=== PATIENT | male | born 1970 | race Caucasian/White ===

== ENCOUNTER 2019-03-11 05:17 | Inpatient (IN) | payer OTHER ==
[~2019-03-11] VITALS: Ht 177.8 cm; Wt 141.5 kg
[~2019-03-11 05:17] MED LIST: DICL75TA5 PO; HYDR-4354 PO
[2019-03-11 06:00] VITALS: BP 150/97
--- NOTE | 2019-03-11 06:00 | NUR ---
admission note. patient admitted to [facility] from home as direct admission to have surgery perfored by dr. whitaker on left knee. admission assessment performed. iv initiated to right forearm. patient tolerated the procedure well. consents for surgery signed. patient npo since 10 pm last night. patient questions ancd concerns addressed. bed down locked sr x2 call nunez in reach. patient verbalized understanding to call for assistance as needed.
[2019-03-11 07:01] LABS: BASOPHILS % (AUTO) 0.4 % (0.0-2.0); EOSINOPHILS % (AUTO) 5.3 % (0.0-6.0); HEMATOCRIT 41 % (39-51); HEMOGLOBIN 13.7 g/dL (13.5-17.5); LYMPHOCYTES # (AUTO) 1.9 /CMM (0.8-4.8); LYMPHOCYTES % (AUTO) 26.7 % (20.0-44.0); MEAN CORPUSCULAR HGB CONC 34 g/dl (31.0-36.0); MEAN CORPUSCULAR VOLUME 81 fL (80-96); MONOCYTES # (AUTO) 0.5 /CMM (0.1-1.30); MONOCYTES % (AUTO) 7.4 % (2.0-12.0); NEUTROPHILS # (AUTO) 4.2 /CMM (1.8-8.9); NEUTROPHILS % (AUTO) 60.2 % (43.0-81.0); PLATELET COUNT (AUTO) 192 /CMM (150-450); RED BLOOD CELL COUNT(AUTO) 5.02 MIL/uL (4.5-6.0)
[2019-03-11] MEDS ORDERED: METF-440 PO (07:08)
[2019-03-11] MEDS ORDERED: HYDR-4354 PO (07:08)
[2019-03-11] MEDS ORDERED: CELE100C PO (07:08)
[2019-03-11] MEDS ORDERED: OMEP20CA11 PO (07:08)
[2019-03-11 07:16] LABS: CALCIUM, SERUM 8.7 mg/dL (8.5-10.1); CREATININE 0.8 mg/dL (0.6-1.3); POTASSIUM 4.3 mmol/L (3.5-5.1)
[2019-03-11 07:19] LABS: MAGNESIUM 1.8 mg/dL (1.8-2.4)
--- NOTE | 2019-03-11 07:30 | NUR ---
RN OPENING NOTE PT WAS RECEIVED IN BED AT LOWEST AND LOCKED POSITION WITH SIDE RAILS UP X2, A/O X4 BREATHING EVEN AND UNLABORED ON RA, NO CURRENT COMPLAINTS OF ANY DISTRESS OR PAIN NOTED, IV IS PATENT AND INTACT, PLAN FOR SURGERY TODAY OF LEFT KNEE, SAFETY PRECAUTIONS IN PLACE, CALL LIGHT WITHIN REACH, WILL MONITOR PT ACCORDINGLY
--- NOTE | 2019-03-11 08:03 | NUR ---
RN NOTE PT WAS TAKEN DOWN TO THE OR AT THIS TIME
[2019-03-11 08:11] VITALS: BP 137/95
[2019-03-11] MEDS ORDERED: BACITRACIN 50000 UNITS/VIAL ONE (08:30)
[2019-03-11] MEDS ORDERED: HYDROMORPHONE INJ 2 MG/ML DISP.SYRIN ONE (08:37)
[2019-03-11] MEDS ORDERED: MIDAZOLAM HCL 2 MG/2ML VIAL ONE (08:37)
[2019-03-11] MEDS ORDERED: SUCCINYLCHOLINE CHLORIDE 20 MG/ML VIAL ONE (08:38)
[2019-03-11] MEDS ORDERED: TRANEXAMIC ACID 3,000 MG in SODIUM CHLORIDE IRRIG SOLUTION 70 ML IR ONE (09:00)
[2019-03-11] MEDS ORDERED: BUPIVACAINE 0.5 % PF 150 MG/30 ML VIAL ONE (10:13)
[2019-03-11] MEDS ORDERED: HYDROMORPHONE 1 MG/1 ML DISP.SYRIN ONE ×2 (10:37→10:55)
[2019-03-11] MEDS ORDERED: DULCOLAX 10 MG/SUPP.RECT RC PRN (11:00)
[2019-03-11] MEDS ORDERED: HYDROMORPHONE INJ 2 MG/ML DISP.SYRIN IV PRN (11:00)
[2019-03-11] MEDS ORDERED: MAG HYDROX/AL HYDROX/SIMETH 30 ML UDC PO PRN ×2 (11:00→12:30)
[2019-03-11] MEDS ORDERED: MAGNESIUM HYDROXIDE 30 ML UDC PO PRN ×2 (11:00→12:30)
[2019-03-11] MEDS ORDERED: diphenhydrAMINE HCL 25 MG CAPSULE PO PRN ×2 (11:00→12:30)
[2019-03-11] MEDS ORDERED: NALOXONE HCL 0.4 MG/ML AMPUL IV PRN ×2 (11:00→12:30)
[2019-03-11] MEDS ORDERED: MENTHOL/CETYLPYRD (CEPACOL) 1 LOZ LOZENGE MM PRN ×2 (11:00→12:30)
[2019-03-11] MEDS ORDERED: HYDROCODONE/APAP 10/325MG 1 EA TABLET PO PRN (11:00)
[2019-03-11] MEDS ORDERED: CLONIDINE HCL 0.1 MG TABLET PO PRN ×2 (11:00→12:30)
[2019-03-11] MEDS ORDERED: HYDROMORPHONE INJ 2 MG/ML DISP.SYRIN SQ PRN (11:00)
[2019-03-11] MEDS ORDERED: ONDANSETRON HCL/PF 4 MG/2 ML VIAL IVP PRN ×3 (11:00→12:30)
[2019-03-11] MEDS ORDERED: SENOKOT 8.6 MG TABLET PO PRN ×2 (11:00→11:18)
[2019-03-11] MEDS ORDERED: COLACE 250 MG CAPSULE PO PRN (11:00)
[2019-03-11] MEDS ORDERED: BISACODYL SUPP (10 MG) 10 MG/SUPP.RECT SUPP.RECT RC PRN ×2 (11:00→11:30)
[2019-03-11] MEDS ORDERED: TYLENOL 650 MG TABLET PO PRN (11:00)
[2019-03-11 11:30] VITALS: BP 148/96
[2019-03-11] MEDS ORDERED: HYDROCODONE/APAP 5/325MG 1 EACH TABLET PO PRN ×2 (11:30)
[2019-03-11] MEDS: IV D5/0.45 NACL 1,000 ML IV PRN ×2 (11:43→20:34)
[2019-03-11 11:45] VITALS: BP 148/99
[2019-03-11] MEDS ORDERED: CYCLOBENZAPRINE 10 MG TABLET PO PRN (12:30)
[2019-03-11] MEDS ORDERED: KEY,NONCONTROL,TO KEEP IN PYXI 1 EA MC ONE (13:43)
[2019-03-11] MEDS: HYDROMORPHONE MDV 30 MG in IV NS 0.9% 15 ML, PCA TOTAL VOLUME 1 BAG IV PRN ×3 (13:48)
[2019-03-11] MEDS: ANCEF 1 G in IV D5W 50 ML IV SCH ×2 (15:13→23:53)
[2019-03-11] MEDS: DOCUSATE SODIUM 100 MG CAPSULE PO SCH (16:18)
[2019-03-11 16:27] VITALS: BP 132/94
[2019-03-11] MEDS ORDERED: DOCUSATE SODIUM 100 MG CAPSULE PO SCH (17:00)
[2019-03-11] MEDS: HYDROMORPHONE INJ 2 MG/ML DISP.SYRIN SQ PRN (17:50)
--- NOTE | 2019-03-11 19:20 | NUR ---
RN OPEN NOTES RECEIVED PATIENT AWAKE IN BED. A/OX4. NO SIGNS OF DISTRESS OR DISCOMFORT. BREATHING EVEN AND UNLABORED. IV ACCESS IN RFA WITH D5 1/2NS INFUSING, PATENT AND INTACT, NO SIGNS OF REDNESS OR INFILTRATION. STATES PAIN 5/10 IN L KNEE AND TOLERABLE AT THIS TIME. ON SCHOOL ADMISSIONS REPRESENTATIVE PUMP, TOLERATING WELL. BED IN LOW LOCKED POSITION WITH SIDE RAILS X2. CALL LIGHT WITHIN REACH. WILL CONTINUE TO MONITOR.
--- NOTE | 2019-03-11 19:32 | NUR ---
RN CLOSING NOTE PT IN BED AT LOWEST AND LOCKED POSITION WITH SIDE RAILS UP X2, A/O X4 BREATHING EVEN AND UNLABORED ON RA, NO CURRENT COMPLAINTS OF ANY DISTRESS OR PAIN NOTED, IV IS PATENT AND INTACT, SAFETY PRECAUTIONS IN PLACE, CALL LIGHT WITHIN REACH, WILL ENDORSE TO WEB APPLICATIONS ARCHITECT RN FOR TAWNYA.
[2019-03-11 20:00] VITALS: BP 115/85
[2019-03-11] MEDS: FAMOTIDINE (20 MG) 20 MG TABLET PO SCH (20:27)
[2019-03-11] MEDS ORDERED: FAMOTIDINE (20 MG) 20 MG TABLET PO SCH (21:00)
[2019-03-11] MEDS ORDERED: ZOLPIDEM TARTRATE 5 MG TABLET PO PRN (22:00)
[2019-03-12] MEDS: HYDROMORPHONE INJ 2 MG/ML DISP.SYRIN SQ PRN ×4 (04:22→16:06)
--- NOTE | 2019-03-12 04:22 | NUR ---
RN NOTES ADMINISTERED DILAUDID 1MG ORDERED FOR 9/10 PAIN IN L KNEE, AT PATIENT REQUEST. VSS. WILL CONTINUE TO MONITOR.
[2019-03-12] MEDS: HYDROCODONE/APAP 10/325MG 1 EA TABLET PO PRN ×4 (06:05→21:06)
[2019-03-12] MEDS: IV D5/0.45 NACL 1,000 ML IV PRN ×2 (06:05→21:13)
--- NOTE | 2019-03-12 06:05 | NUR ---
RN NOTES ADMINISTERED NORCO 10/325 ORDERED FOR 7/10 PAIN IN L KNEE, AT PATIENT REQUEST. VSS. WILL CONTINUE TO MONITOR.
--- NOTE | 2019-03-12 06:43 | NUR ---
RN CLOSING NOTES PATIENT RESTING IN BED. A/OX4. NO SIGNS OF DISTRESS OR DISCOMFORT. BREATHING EVEN AND UNLABORED. IV ACCESS IN RFA WITH D5 1/2NS INFUSING, PATENT AND INTACT, NO SIGNS OF REDNESS OR INFILTRATION. STATES PAIN IN L KNEE IS TOLERABLE AT THIS TIME. ON SECURITY SERVICES SPECIALIST PUMP, TOLERATING WELL. ALL NEEDS MET. NO SIGNIFICANT CHANGES THROUGH THE NIGHT. BED IN LOW LOCKED POSITION WITH SIDE RAILS X2. CALL LIGHT WITHIN REACH. WILL ENDORSE TO AM SHIFT FOR TAWNYA.
[2019-03-12 08:00] VITALS: BP 134/91
--- NOTE | 2019-03-12 08:00 | NUR ---
RN OPENING NOTES RECEIVED PT. PT STABLE AND RESTING IN BED. NO S/S OF RESP DISTRESS/SOB, PTS BREATHING APPEARS UNLABORED, UPON AUSCULTATION BREATH SOUNDS CLEAR. NO C/O PAIN AT THIS TIME. TYPE INSPECTOR PUMP BEDSIDE, CONTROLLER WITHIN REACH. PT TO HAVE PT/OT AND RECEIVE CPM TODAY, WILL F/U WITH THERAPY. SAFETY MEASURES IN PLACE, CALL LIGHT WITHIN REACH. WILL CONT TO MONITOR.
[2019-03-12] MEDS: FAMOTIDINE (20 MG) 20 MG TABLET PO SCH ×2 (08:41→21:06)
[2019-03-12] MEDS: ASPIRIN 325 MG TABLET PO SCH ×2 (08:41→16:03)
[2019-03-12] MEDS: SENNOSIDES 8.6 MG TABLET PO SCH (08:41)
[2019-03-12] MEDS: TAMSULOSIN 0.4 MG CAP.SR.24H PO SCH (08:41)
[2019-03-12] MEDS: DOCUSATE SODIUM 100 MG CAPSULE PO SCH ×2 (08:41→16:04)
[2019-03-12] MEDS ORDERED: SENNOSIDES 8.6 MG TABLET PO SCH (09:00)
[2019-03-12] MEDS ORDERED: DEXTROSE 50%-WATER 50 ML DISP.SYRIN IV PRN (09:00)
[2019-03-12] MEDS: BLOOD SUGAR DIAGNOSTIC 1 EACH STRIP IN SCH ×3 (12:21→21:07)
[2019-03-12] MEDS: INSULIN REGULAR, HUMAN 100 UNIT/ML 3 ML VIAL SQ PRN ×3 (12:42→21:08)
[2019-03-12 13:02] VITALS: BP 134/91
[2019-03-12] MEDS ORDERED: KEY,NONCONTROL,TO KEEP IN PYXI 1 EA MC ONE (14:33)
[2019-03-12] MEDS: HYDROMORPHONE MDV 30 MG in IV NS 0.9% 15 ML, PCA TOTAL VOLUME 1 BAG IV PRN ×3 (14:44)
[2019-03-12 16:00] VITALS: BP 140/88
--- NOTE | 2019-03-12 17:42 | NUR ---
RN CLOSING NOTE PT IN BED RESTING. PAIN MANAGED THROUGHOUT SHIFT. PT REQUESTING CHANGE IN MEDICATION THERAPY FROM DIULADID->MORPHINE, STATING "MORPHINE WORKS THE BEST". PT ABLE TO WALK WITH PT X3 FOR 10-20 FT. ABLE TO AMBULATE TO RESTROOM AND BACK TO BED WITH FWW. ALL PT NEEDS ANTICIPATED AND MET, SAFETY MEASURES IN PLACE, CALL LIGHT IN REACH. WILL ENDORSE TO [employer]ACON SKIN LIFTER FOR TAWNYA.
--- NOTE | 2019-03-12 19:20 | NUR ---
RN OPEN NOTES RECEIVED PATIENT AWAKE IN BED. A/OX4. NO SIGNS OF DISTRESS OR DISCOMFORT. BREATHING EVEN AND UNLABORED. IV ACCESS IN RFA WITH D5 1/2NS INFUSING, PATENT AND INTACT, NO SIGNS OF REDNESS OR INFILTRATION. ON RIG SUPERVISOR PUMP, TOLERATING WELL. DRESSING ON L LEG C/D/I. BED IN LOW LOCKED POSITION WITH SIDE RAILS X2. CALL LIGHT WITHIN REACH. WILL CONTINUE TO MONITOR.
[2019-03-12 20:00] VITALS: BP 143/99
[2019-03-12] MEDS ORDERED: HYDROCODONE/APAP 10/325MG 1 EA TABLET PO ONE (20:24)
--- NOTE | 2019-03-12 21:06 | NUR ---
RN NOTES ADMINISTERED NORCO 10/325 2TABS ORDERED FOR L KNEE PAIN 04/03, AT PATIENT REQUEST. VSS. WILL CONTINUE TO MONITOR.
[2019-03-13] MEDS: HYDROCODONE/APAP 10/325MG 1 EA TABLET PO PRN ×4 (03:39→21:31)
--- NOTE | 2019-03-13 03:39 | NUR ---
RN NOTES ADMINISTERED NORCO 10/325 2TABS ORDERED FOR L KNEE PAIN 04/03, AT PATIENT REQUEST. VSS. WILL CONTINUE TO MONITOR.
[2019-03-13] MEDS: INSULIN REGULAR, HUMAN 100 UNIT/ML 3 ML VIAL SQ PRN ×4 (06:42→21:39)
[2019-03-13] MEDS: BLOOD SUGAR DIAGNOSTIC 1 EACH STRIP IN SCH ×4 (06:43→21:37)
--- NOTE | 2019-03-13 07:22 | NUR ---
RN CLOSING NOTES PATIENT AWAKE IN BED. A/OX4. NO SIGNS OF DISTRESS OR DISCOMFORT. BREATHING EVEN AND UNLABORED. IV ACCESS IN RFA WITH D5 1/2NS INFUSING, PATENT AND INTACT, NO SIGNS OF REDNESS OR INFILTRATION. STATES PAIN IN L KNEE IS 4/10 AND TOLERABLE AT THIS TIME. ON [employer] STORAGE ARCHITECT PUMP, TOLERATING WELL. ALL NEEDS MET. NO SIGNIFICANT CHANGES THROUGH THE NIGHT. BED IN LOW LOCKED POSITION WITH SIDE RAILS X2. CALL LIGHT WITHIN REACH. ENDORSED TO AM SHIFT FOR TAWNYA.
[2019-03-13 07:30] LABS: BASOPHILS % (AUTO) 0.3 % (0.0-2.0); EOSINOPHILS % (AUTO) 2.9 % (0.0-6.0); HEMATOCRIT 38 % (39-51); HEMOGLOBIN 12.6 g/dL (13.5-17.5); LYMPHOCYTES # (AUTO) 1.2 /CMM (0.8-4.8); LYMPHOCYTES % (AUTO) 15.3 % (20.0-44.0); MEAN CORPUSCULAR HGB CONC 33 g/dl (31.0-36.0); MEAN CORPUSCULAR VOLUME 82 fL (80-96); MONOCYTES # (AUTO) 0.7 /CMM (0.1-1.30); MONOCYTES % (AUTO) 8.6 % (2.0-12.0); NEUTROPHILS # (AUTO) 5.9 /CMM (1.8-8.9); NEUTROPHILS % (AUTO) 72.9 % (43.0-81.0); PLATELET COUNT (AUTO) 178 /CMM (150-450); RED BLOOD CELL COUNT(AUTO) 4.67 MIL/uL (4.5-6.0)
--- NOTE | 2019-03-13 07:30 | NUR ---
MS RN NOTES PATIENT IS IN BED RESTING. PATIENT IS AWAKE, ALERT, AND ORIENTED X4. PATIENT IS AMBULATORY WITH ASSIST. PATIENT PAIN IN LEFT KNEE IS 4/10, ON SITE NURSE PUMP IS ON AND PATIENT IS TOLERATING WELL. PATIENT IS BREATHING ON ROOM AIR. PATIENT BREATHING IS EVEN AND UNLABORED. PATIENT IN NO ACUTE DISTRESS. NO SOB NOTED. PATIENT BED IS LOCKED AND IN LOW POSITION. CALL LIGHT WITHIN REACH. WILL CONTINUE TO MONITOR.
[2019-03-13 07:44] LABS: CALCIUM, SERUM 8.2 mg/dL (8.5-10.1); CREATININE 0.7 mg/dL (0.6-1.3); PHOSPHORUS 3.1 mg/dL (2.5-4.9)
[2019-03-13 08:00] VITALS: BP 132/96
[2019-03-13] MEDS: TAMSULOSIN 0.4 MG CAP.SR.24H PO SCH (09:25)
[2019-03-13] MEDS: FAMOTIDINE (20 MG) 20 MG TABLET PO SCH ×2 (09:25→21:31)
[2019-03-13] MEDS: DOCUSATE SODIUM 100 MG CAPSULE PO SCH ×2 (09:25→16:49)
[2019-03-13] MEDS: ASPIRIN 325 MG TABLET PO SCH ×2 (09:25→16:50)
[2019-03-13] MEDS: SENNOSIDES 8.6 MG TABLET PO SCH (09:25)
[2019-03-13] MEDS: IV D5/0.45 NACL 1,000 ML IV PRN (09:29)
--- NOTE | 2019-03-13 11:00 | NUR ---
MS RN NOTES SPOKE WITH MIRIAM GO NP. NO NEW ORDERS AT THIS TIME, CONTINUE WITH PLAN OF CARE. WILL CONTINUE TO MONITOR.
--- NOTE | 2019-03-13 14:50 | NUR ---
MS RN NOTES SPOKE WITH DR. PERSAUD. CONTINUE LITHOGRAPH DESIGNER PUMP ORDERED. PATIENT IS STABLE AND IN NO ACUTE DISTRESS. WILL CONTINUE TO MONITOR.
[2019-03-13 16:00] VITALS: BP 120/76
[2019-03-13] MEDS: HYDROMORPHONE MDV 30 MG in IV NS 0.9% 15 ML, PCA TOTAL VOLUME 1 BAG IV PRN ×3 (18:06)
--- NOTE | 2019-03-13 19:30 | NUR ---
MS RN CLOSING NOTES PATIENT IS IN BED RESTING, AWAKE, ALERT AND ORIENTED X4. PATIENT IS BREATHING ON ROOM AIR. PATIENT BREATHING IS EVEN AND UNLABORED. NO ACUTE DISTRESS NOTED. PATIENT STATES PAIN AT THIS TIME IS A 3/10 AT THE LEFT KNEE. PATIENT TOLERATING TECHNICAL OPERATIONS VICE PRESIDENT PUMP WELL. PATIENT IV INTACT. PATIENT KEPT CLEAN, DRY, AND COMFORTABLE. PATIENT SAFETY PRECAUTIONS IN PLACE. PATIENT WITH FRONT WHEEL WALKER BY THE BEDSIDE. ALL NURSING NEEDS MET PATIENT BED IS LOCKED AND IN LOWEST POSITION. PATIENT CALL LIGHT WITHIN REACH. ENDORSED CARE TO PM SHIFT FOR TAWNYA.
--- NOTE | 2019-03-13 19:40 | NUR ---
RN Notes Received patient awake, alert and oriented x4. Pain on left knee at tolerable level at this time, pt on INDUSTRIAL RELATIONS ANALYST dilaudid. Current diet tolerated well, denies nausea and vomiting. Left knee with immobilzer on. Able to ambulate with FWW, safety measures and fall precaution observed with call light with in reach. Plan of care discussed with the patient and discessed understanding. Will continue to monitor patient.
[2019-03-13 20:00] VITALS: BP 133/83
--- NOTE | 2019-03-13 21:31 | NUR ---
RN Notes Patient placed on CPM with settings in place 65 degrees. Patient complains of pain on left knee, 8/10 norco 10/325 mg 2 tab given PO and tolerated well. Will continue to monitor.
[2019-03-13 22:00] VITALS: BP 133/83
[2019-03-14] MEDS: HYDROCODONE/APAP 10/325MG 1 EA TABLET PO PRN ×2 (01:32→08:56)
--- NOTE | 2019-03-14 01:32 | NUR ---
RN Notes Patient complains of left knee pain, 05/04. [place] 10/325 mg 2 tabs given PO. Will continue to monitor.
--- NOTE | 2019-03-14 06:32 | NUR ---
RN Notes Patient sleep well overnight, vital signs stable, afebrile. Kept pain at tolerable level with dilaudid LEGISLATORS and norco 2 tabs of 10/325 mg. Leg leg on immobilizer and kept elevated. All needs attended,with call light with in reach. Fall precaution observed. Will endorse to morning RN for continuity of care.
[2019-03-14] MEDS: BLOOD SUGAR DIAGNOSTIC 1 EACH STRIP IN SCH ×2 (06:52→11:49)
[2019-03-14] MEDS: INSULIN REGULAR, HUMAN 100 UNIT/ML 3 ML VIAL SQ PRN ×2 (06:54→11:52)
--- NOTE | 2019-03-14 07:33 | NUR ---
MS RN OPEN NOTES PATIENT IS RESTING IN BED, AWAKE, ALERT AND ORIENTED X4. PATIENT IS BREATHING ON ROOM AIR. PATIENT BREATHING IS EVEN AND UNLABORED. PATIENT IS IN NO ACUTE DISTRESS. PATIENT STATES KNEE PAIN IS 4/10 ON THE LEFT KNEE. FRONT WHEEL WALKER BY THE BEDSIDE. NO SOB NOTED. IV INTACT. PATIENT BED IS LOCKED AND IN LOWEST POSITION. CALL LIGHT WITHIN REACH. WILL CONTINUE TO MONITOR.
[2019-03-14 07:41] LABS: BASOPHILS % (AUTO) 0.3 % (0.0-2.0); EOSINOPHILS % (AUTO) 3.8 % (0.0-6.0); HEMATOCRIT 39 % (39-51); HEMOGLOBIN 13.1 g/dL (13.5-17.5); LYMPHOCYTES # (AUTO) 1.5 /CMM (0.8-4.8); LYMPHOCYTES % (AUTO) 18.1 % (20.0-44.0); MEAN CORPUSCULAR HGB CONC 33 g/dl (31.0-36.0); MEAN CORPUSCULAR VOLUME 83 fL (80-96); MONOCYTES # (AUTO) 0.7 /CMM (0.1-1.30); MONOCYTES % (AUTO) 7.8 % (2.0-12.0); NEUTROPHILS # (AUTO) 5.8 /CMM (1.8-8.9); PLATELET COUNT (AUTO) 206 /CMM (150-450); RED BLOOD CELL COUNT(AUTO) 4.75 MIL/uL (4.5-6.0); WHITE BLOOD COUNT (AUTO) 8.3 K/uL (4.3-11.0)
[2019-03-14 07:45] LABS: CALCIUM, SERUM 9.3 mg/dL (8.5-10.1); CREATININE 0.8 mg/dL (0.6-1.3)
[2019-03-14 08:00] VITALS: BP 128/85
[2019-03-14] MEDS ORDERED: DOCU100C36 PO (08:40)
[2019-03-14] MEDS ORDERED: ASPI-992 PO (08:40)
[2019-03-14] MEDS ORDERED: ONDA4TAB5 PO (08:40)
[2019-03-14] MEDS: SENNOSIDES 8.6 MG TABLET PO SCH (08:54)
[2019-03-14] MEDS: ASPIRIN 325 MG TABLET PO SCH (08:56)
[2019-03-14] MEDS: DOCUSATE SODIUM 100 MG CAPSULE PO SCH (08:56)
[2019-03-14] MEDS: FAMOTIDINE (20 MG) 20 MG TABLET PO SCH (08:56)
--- NOTE | 2019-03-14 14:15 | NUR ---
MS WILDLIFE CONTROL OPERATOR NOTE PATIENT IN STABLE CONDITION. MD AWARE OF DC. PATIENT VITAL SIGNS WITHIN NORMAL LIMITS. PATIENT BREATHING ON ROOM AIR SATURATING >95%. PATIENT IN NO ACUTE DISTRESS. NO SOB NOTED. PATIENT KEPT CLEAN, DRY, AND COMFORTABLE. SKIN ASSESSED. NO NEW SKIN BREAKDOWN. PATIENT HAS ALL BELONGINGS. BELONGINGS LIST SIGNED AND IN CHART. DISCHARGE PACKET GIVEN TO PATIENT. DC INSTRUCTIONS PROVIDED AND PATIENT VERBALIZES.IV REMOVED. ID BAND REMOVED. PATIENT AMBULATORY WITH FRONT WHEEL WALKER. PATIENT LEFT LEG DRESSING AND BANDAGING INTACT. PATIENT HAS TRANSPORTATION FROM ONE CALL, [facility] TRANSPORT[facility] TO HOME.
== END 2019-03-14 16:36 | disposition home health service (06) | DRG 467 ==
LOC: DS 05:17 → MED 05:19
PROVIDERS: ADMIT Internal Medicine; ATTEND Nurse Practitioner Acute Care
PROC: 0SPW0JZ Removal of Synthetic Substitute from Left Knee Joint, Tibial Surface, Open Approach (ICD-10-PCS; principal; 2019-03-11)
PROC: 0SRW0JZ Replacement of Left Knee Joint, Tibial Surface with Synthetic Substitute, Open Approach (ICD-10-PCS; principal; 2019-03-11)
DX: T84.033A Mechanical loosening of internal left knee prosthetic joint, initial encounter (principal); Z68.41 Body mass index [BMI] 40.0-44.9, adult; E66.01 Morbid (severe) obesity due to excess calories; E78.5 Hyperlipidemia, unspecified; M19.90 Unspecified osteoarthritis, unspecified site; Y79.2 Prosthetic and other implants, materials and accessory orthopedic devices associated with adverse incidents; Y92.009 Unspecified place in unspecified non-institutional (private) residence as the place of occurrence of the external cause; K21.9 Gastro-esophageal reflux disease without esophagitis; E11.65 Type 2 diabetes mellitus with hyperglycemia; Z79.84 Long term (current) use of oral hypoglycemic drugs
CPT/HCPCS: 36415; 71045-TC; 80048-TC; 82962-TC; 83735-TC; 84100-TC; 85025-TC; 85610-TC; 86850-TC; 87081-TC; 97110-TC; 97116-TC; 97530-TC; 97760-TC; A4216; A4217; A6253; G0378; J0330; J0690; J1170; J1815; J2250; J2405; J2704; J2710; J2765; J3490; J7060; L1830; Q0163